=== PATIENT | male | born 1950 | race Caucasian/White ===

== ENCOUNTER → 2019-02-09 | Outpatient (CLI) | payer MEDICARE ==
[~2019-02-09] MED LIST: ASPI325T17 PO; CARV20CP PO; RAMI10CA59 PO; REGADENOSON 0.4 MG/5 ML SYRINGE ONE; SIMV40TA3 PO; SITA1TAB PO
== END | disposition home or self-care (01) ==
LOC: CVU 07:05
PROVIDERS: ATTEND Internal Medicine Cardiovascular Disease
DX: I08.8 Other rheumatic multiple valve diseases (principal); I10 Essential (primary) hypertension; E11.9 Type 2 diabetes mellitus without complications; E78.5 Hyperlipidemia, unspecified; F17.200 Nicotine dependence, unspecified, uncomplicated; Z98.61 Coronary angioplasty status
CPT/HCPCS: 78452; 93017; 93306; A9502; J2785

== ENCOUNTER → 2020-03-09 | Outpatient (CLI) | payer MEDICARE ==
[~2020-03-09] MED LIST changes: +CARV12.52 PO; +CHOL10003 PO; +KRIL1CAP29 PO; +METF10007 PO; +PRED5TAB PO; -REGADENOSON 0.4 MG/5 ML SYRINGE ONE; +SIMV40TA20 PO; -SIMV40TA3 PO; +SITA1TBM7 PO
== END | disposition home or self-care (01) ==
LOC: CFH 11:13
PROVIDERS: ATTEND Registered Nurse
DX: J90 Pleural effusion, not elsewhere classified (principal); J43.9 Emphysema, unspecified; R06.02 Shortness of breath; I10 Essential (primary) hypertension; E78.5 Hyperlipidemia, unspecified; I25.2 Old myocardial infarction; I25.5 Ischemic cardiomyopathy; M79.18 Myalgia, other site; Z72.0 Tobacco use; Z98.61 Coronary angioplasty status
CPT/HCPCS: 71046